=== PATIENT | female | born 1985 | race Hispanic/Latino ===

== ENCOUNTER → 2018-03-29 | Outpatient (CLI) | payer OTHER ==
--- NOTE | 2018-03-29 13:30 | Diagnostic Imaging Report ---
Exam: Right finger, 3 views History: Right finger pain for months Comparison: None. Findings: There is normal bone mineralization. No acute, displaced fracture or dislocation. Joint spaces preserved. No abnormal soft tissue calcification or soft tissue defect. No soft tissue swelling. Impression: 1. No acute abnormalities. Signed by: Dr. Wil Whittington M.D. on 03/29/2018 1:27 PM
== END ==
LOC: RAD 12:37
PROVIDERS: ATTEND Family Medicine
DX: M79.644 Pain in right finger(s) (principal)

== ENCOUNTER → 2020-12-31 | Outpatient (CLI) | payer OTHER | LOC: DX 08:49 | PROVIDERS: ATTEND Surgery | DX: R10.9 Unspecified abdominal pain (principal); Z98.84 Bariatric surgery status | CPT/HCPCS: 74246; 74250; 81025; U0002 ==